=== PATIENT | male | born 2000 | race African-American/Black ===

== ENCOUNTER 2023-09-19 13:54 | Emergency (ER) | payer MEDICAID ==
[~2023-09-19] VITALS: Ht 188 cm; Wt 104.0 kg
[2023-09-19 14:00] VITALS: O2SAT 97
[2023-09-19] MEDS ORDERED: AMOX-494 PO (17:30)
[2023-09-19] MEDS ORDERED: ERYT1OIN6 LEFTEYE (17:30)
[2023-09-19 17:55] VITALS: BP 125/90; PULSE 74; RESP 18; TEMP 98.3
== END 2023-09-19 18:10 | disposition home or self-care (01) ==
LOC: ER 13:54
DX: J02.9 Acute pharyngitis, unspecified (principal); H10.9 Unspecified conjunctivitis
CPT/HCPCS: 87070; 87430; 99283